=== PATIENT | female | born 1940 | race Caucasian/White ===

== ENCOUNTER 2017-09-25 16:12 | Inpatient (IN) | payer OTHER ==
[~2017-09-25] VITALS: Ht 162.6 cm; Wt 115.3 kg
[~2017-09-25 16:12] MED LIST: ADULT LOW DOSE81 M1 PO; ALLOPURINOL100 MG PO; ASPIR 8181 MG PO; CALCITRIOL0.25 MCG PO; CELEBREX200 MG PO; CIPRO500 MG PO; COMBIVENT RESPIM4 GM IH; COMBIVENT200 INHALA IH; COUMADIN,JANTOVE1 MG PO; COUMADIN1 MG PO; DILTIA XT120 MG PO; ELAVIL25 MG PO; GLUCOPHAGE1000 M1 PO; JANUVIA100 MG PO; JANUVIA25 M1 PO; LANOXIN,DIGI0.125 MG PO; LASIX20 MG PO; LASIX40 MG PO; LEVOTHYROXINE100 MCG PO; LIPITOR20 MG PO; LIPITOR40 MG PO; Lasix PO; NEURONTIN400 M1 PO; NIASPAN,SLO-NI500 MG PO; NIASPAN500 MG PO; SYMBICORT60 INHALA1 IH; VITAMIN D2000 UNIT PO; ZESTRIL5 MG PO
[2017-09-25 18:00] LABS: BASOPHIL (%) 0.2 % (0-1); BASOPHIL COUNT 0.1 K/uL (0-0.1); EOSINOPHIL (%) 0 % (0-5); HEMATOCRIT 43.4 % (36.0-46.0); HEMOGLOBIN 14.8 G/DL (11.9-15.5); IMMATURE GRANULOCYTE (%) 2.1 % (0.0-0.7); LYMPHOCYTE (%) 2.5 % (15-42); LYMPHOCYTE COUNT 0.8 K/uL (1.0-2.8); MCH 31.9 PG (29.0-34.0); MCHC 34.1 G/DL (30.0-36.0); MCV 93.5 FL (83-99); MONOCYTE (%) 5.6 % (3-12); MONOCYTE COUNT 1.7 K/uL (0-0.8); NEUTROPHIL (%) 89.6 % (45-76); NEUTROPHIL COUNT 26.8 K/uL (1.8-6.4); PLATELET COUNT 215 K/uL (156-360); RBC DIS.WIDTH-CV 13.5 % (11.8-14.6); RBC DIS.WIDTH-SD 46.3 % (39-53); RED BLOOD COUNT 4.64 M/uL (3.80-5.20); WHITE BLOOD COUNT 29.9 K/uL (4.1-10.2)
[2017-09-25 18:06] LABS: INTER. NORMALIZED RATIO 3.2
[2017-09-25 18:07] LABS: ALBUMIN 3.6 g/dL (3.2-4.8)
[2017-09-25 18:08] LABS: CHLORIDE 100 mEq/L (99-109); POTASSIUM 3.4 mEq/L (3.7-5.4); PTT 42.8 SEC (25-37); SODIUM 140 mEq/L (136-147)
[2017-09-25 18:10] LABS: GLUCOSE 161 mg/dL (70-99); TOTAL PROTEIN 6.9 g/dL (6.4-8.3)
[2017-09-25 18:12] LABS: TOTAL BILIRUBIN 1.8 mg/dL (0.0-1.0)
[2017-09-25 18:13] LABS: ALKALINE PHOSPHATASE 102 IU/L (3-129)
[2017-09-25 18:14] LABS: CREATININE 1.8 mg/dL (0.6-1.3); GFR ESTIMATE (CALCULATED) 29 mL/min/
[2017-09-25 18:15] LABS: AST (GOT) 89 IU/L (2-34); UREA NITROGEN (BUN) 28 mg/dL (9-23)
[2017-09-25 18:17] LABS: ALT (GPT) 55 IU/L (3-49)
[2017-09-25 18:18] LABS: LIPASE 1 U/L (1.0-51.0)
[2017-09-25 20:15] LABS: APPEARANCE TURBID ((CLEAR)); BILIRUBIN NEGATIVE; BLOOD SMALL; COLOR AMBER ((YELLOW)); GLUCOSE (STRIP) NEGATIVE; KETONES 5; LEUKOCYTES MODERATE; NITRITE NEGATIVE; PROTEIN (STRIP) 100; SPECIFIC GRAVITY 1.019 (1.000-1.030)
[2017-09-25 20:27] LABS: BACTERIA 4+ /HPF; EPITHELIAL CELLS 3+ /HPF; MUCUS NONE SEEN /LPF; WHITE BLOOD CELLS TNTC /HPF (0-5)
[2017-09-25] MEDS ORDERED: DILTIAZEM 24HR120 MG PO (21:52)
[2017-09-25] MEDS ORDERED: COLACE100 MG PO (21:55)
[2017-09-25] MEDS ORDERED: MYRBETRIQ25 MG PO (21:55)
[2017-09-25 23:36] LABS: CREATINE KINASE 931 IU/L (1-294)
[2017-09-26] VITALS (33 sets, daily range): BP systolic 86–141; BP diastolic 51–84
[2017-09-26 06:04] LABS: PTT 35.9 SEC (25-37)
[2017-09-26 06:12] LABS: INTER. NORMALIZED RATIO 1.8
[2017-09-26 06:18] LABS: HEMATOCRIT 33.8 % (36.0-46.0); MCH 30.7 PG (29.0-34.0); MCHC 32.8 G/DL (30.0-36.0); MCV 93.6 FL (83-99); PLATELET COUNT 173 K/uL (156-360); RBC DIS.WIDTH-CV 13.7 % (11.8-14.6); RBC DIS.WIDTH-SD 47.4 % (39-53); WHITE BLOOD COUNT 19.2 K/uL (4.1-10.2)
[2017-09-26 06:23] LABS: ALBUMIN 3.2 G/DL (3.2-4.8); ALKALINE PHOSPHATASE 67 IU/L (3-129); ALT (GPT) 38 IU/L (3-49); AST (GOT) 57 IU/L (2-34); CHLORIDE 101 MEQ/L (99-109); CREATININE 1.9 MG/DL (0.6-1.3); GFR ESTIMATE (CALCULATED) 27 mL/min/; GLUCOSE 157 mg/dL (70-99); POTASSIUM 3.4 MEQ/L (3.7-5.4); SODIUM 140 MEQ/L (136-147); TOTAL BILIRUBIN 1.4 MG/DL (0.0-1.0); TOTAL PROTEIN 5.7 G/DL (6.4-8.3); UREA NITROGEN (BUN) 31 mg/dL (9-23)
[2017-09-26 06:27] LABS: HEMOGLOBIN 11.1 G/DL (11.9-15.5); RED BLOOD COUNT 3.61 M/uL (3.80-5.20)
[2017-09-26 10:34] LABS: HEMOGLOBIN A1c (GLYCOHEMOGLOB) 5.9 % (Below 5.7)
[2017-09-26 17:30] LABS: HEMATOCRIT 32.4 % (36.0-46.0); HEMOGLOBIN 10.7 G/DL (11.9-15.5); MCH 31.1 PG (29.0-34.0); MCV 94.2 FL (83-99); PLATELET COUNT 152 K/uL (156-360); RBC DIS.WIDTH-CV 13.9 % (11.8-14.6); RBC DIS.WIDTH-SD 47.8 % (39-53); RED BLOOD COUNT 3.44 M/uL (3.80-5.20); WHITE BLOOD COUNT 15.8 K/uL (4.1-10.2)
[2017-09-26 17:41] LABS: INTER. NORMALIZED RATIO 1.5
[2017-09-26 17:44] LABS: PTT 31.1 SEC (25-37)
[2017-09-26 18:02] LABS: ALBUMIN 3.6 G/DL (3.2-4.8); ALT (GPT) 42 IU/L (3-49); AST (GOT) 79 IU/L (2-34); CHLORIDE 101 MEQ/L (99-109); CREATININE 1.9 MG/DL (0.6-1.3); GFR ESTIMATE (CALCULATED) 27 mL/min/; GLUCOSE 166 mg/dL (70-99); MAGNESIUM 1.6 mg/dl (1.3-2.7); PHOSPHORUS 2.6 mg/dL (2.5-4.9); POTASSIUM 3.4 MEQ/L (3.7-5.4); SODIUM 139 MEQ/L (136-147); UREA NITROGEN (BUN) 32 mg/dL (9-23)
[2017-09-26 18:04] LABS: TROP-I INTERPRETATION NEGATIVE; TROPONIN-I 0.02 ng/mL (0.0-0.30)
[2017-09-26 18:23] LABS: ALKALINE PHOSPHATASE 101 IU/L (3-129); TOTAL BILIRUBIN 1.9 MG/DL (0.0-1.0); TOTAL PROTEIN 6.7 G/DL (6.4-8.3)
[2017-09-27] VITALS (22 sets, daily range): BP systolic 64–142; BP diastolic 44–75
[2017-09-27 00:30] LABS: APPEARANCE SL.HAZY ((CLEAR)); BILIRUBIN SMALL; BLOOD SMALL; COLOR AMBER ((YELLOW)); GLUCOSE (STRIP) NEGATIVE; KETONES NEGATIVE; LEUKOCYTES SMALL; NITRITE NEGATIVE; PROTEIN (STRIP) 100; SPECIFIC GRAVITY 1.023 (1.000-1.030)
[2017-09-27 00:50] LABS: BACTERIA NONE SEEN /HPF; EPITHELIAL CELLS RARE /HPF; MUCUS TRACE /LPF; RED BLOOD CELLS 0-5 /HPF (0-5)
[2017-09-27 04:34] LABS: BASOPHIL (%) 0.2 % (0-1); EOSINOPHIL (%) 0 % (0-5); HEMATOCRIT 32.4 % (36.0-46.0); HEMOGLOBIN 10.9 G/DL (11.9-15.5); IMMATURE GRANULOCYTE (%) 1.3 % (0.0-0.7); LYMPHOCYTE (%) 3.8 % (15-42); LYMPHOCYTE COUNT 0.6 K/uL (1.0-2.8); MCH 32.1 PG (29.0-34.0); MCHC 33.6 G/DL (30.0-36.0); MCV 95.3 FL (83-99); MONOCYTE (%) 6.9 % (3-12); NEUTROPHIL (%) 87.8 % (45-76); NEUTROPHIL COUNT 13.3 K/uL (1.8-6.4); PLATELET COUNT 124 K/uL (156-360); RBC DIS.WIDTH-CV 13.9 % (11.8-14.6); RBC DIS.WIDTH-SD 48.6 % (39-53); WHITE BLOOD COUNT 15.2 K/uL (4.1-10.2)
[2017-09-27 04:39] LABS: INTER. NORMALIZED RATIO 1.5
[2017-09-27 04:41] LABS: PTT 33.9 SEC (25-37)
[2017-09-27 09:21] LABS: ANTI-DOUBLE STRANDED DNA 28 U/mL (0-99)
[2017-09-27 17:49] LABS: BASOPHIL (%) 0.1 % (0-1); EOSINOPHIL (%) 0.4 % (0-5); HEMOGLOBIN 10.1 G/DL (11.9-15.5); IMMATURE GRANULOCYTE (%) 0.6 % (0.0-0.7); LYMPHOCYTE (%) 3.6 % (15-42); LYMPHOCYTE COUNT 0.4 K/uL (1.0-2.8); MCH 30.1 PG (29.0-34.0); MCHC 31.6 G/DL (30.0-36.0); MCV 95.5 FL (83-99); MONOCYTE (%) 5.8 % (3-12); MONOCYTE COUNT 0.6 K/uL (0-0.8); NEUTROPHIL (%) 89.5 % (45-76); PLATELET COUNT 120 K/uL (156-360); RBC DIS.WIDTH-CV 14.2 % (11.8-14.6); RBC DIS.WIDTH-SD 50.4 % (39-53); RED BLOOD COUNT 3.35 M/uL (3.80-5.20)
[2017-09-27 18:45] LABS: ALBUMIN 3.2 G/DL (3.2-4.8); ALKALINE PHOSPHATASE 123 IU/L (3-129); ALT (GPT) 45 IU/L (3-49); AST (GOT) 92 IU/L (2-34); CHLORIDE 106 MEQ/L (99-109); CREATINE KINASE 825 IU/L (1-294); CREATININE 1.9 MG/DL (0.6-1.3); GFR ESTIMATE (CALCULATED) 27 mL/min/; GLUCOSE 140 mg/dL (70-99); MAGNESIUM 1.7 mg/dl (1.3-2.7); PHOSPHORUS 2.9 mg/dL (2.5-4.9); POTASSIUM 3.5 MEQ/L (3.7-5.4); SODIUM 140 MEQ/L (136-147); TOTAL BILIRUBIN 1.7 MG/DL (0.0-1.0); TOTAL CK 825 IU/L (1-294); TOTAL PROTEIN 5.4 G/DL (6.4-8.3); UREA NITROGEN (BUN) 36 mg/dL (9-23)
[2017-09-27 19:05] LABS: CK-MB 2.7 ng/mL (0.0-4.9); CKMB RELATIVE INDEX 0.3 (0.0-3.9)
[2017-09-27 19:21] LABS: HIGH-SENS C-REACTIVE PROTEIN > 8.00 MG/DL (0.02-0.20)
[2017-09-28] VITALS (17 sets, daily range): BP systolic 92–129; BP diastolic 58–81
[2017-09-28 06:58] LABS: HEMATOCRIT 30.4 % (36.0-46.0); HEMOGLOBIN 10.2 G/DL (11.9-15.5); MCH 31.5 PG (29.0-34.0); MCHC 33.6 G/DL (30.0-36.0); MCV 93.8 FL (83-99); PLATELET COUNT 120 K/uL (156-360); RBC DIS.WIDTH-CV 14.1 % (11.8-14.6); RBC DIS.WIDTH-SD 48.8 % (39-53); RED BLOOD COUNT 3.24 M/uL (3.80-5.20); WHITE BLOOD COUNT 9.3 K/uL (4.1-10.2)
[2017-09-28 07:09] LABS: INTER. NORMALIZED RATIO 1.5
[2017-09-28 07:10] LABS: PTT 32.8 SEC (25-37)
[2017-09-28 07:23] LABS: ALBUMIN 2.9 G/DL (3.2-4.8); ALT (GPT) 61 IU/L (3-49); CHLORIDE 106 MEQ/L (99-109); GFR ESTIMATE (CALCULATED) 26 mL/min/; GLUCOSE 143 mg/dL (70-99); MAGNESIUM 1.7 mg/dl (1.3-2.7); POTASSIUM 3.7 MEQ/L (3.7-5.4); SODIUM 139 MEQ/L (136-147); TOTAL BILIRUBIN 1.8 MG/DL (0.0-1.0); TOTAL PROTEIN 5.2 G/DL (6.4-8.3); UREA NITROGEN (BUN) 36 mg/dL (9-23)
[2017-09-28 07:28] LABS: ALKALINE PHOSPHATASE 198 IU/L (3-129); AST (GOT) 144 IU/L (2-34)
[2017-09-29] VITALS (22 sets, daily range): BP systolic 109–137; BP diastolic 58–94
[2017-09-29 06:30] LABS: BASOPHIL (%) 0.4 % (0-1); EOSINOPHIL (%) 2.5 % (0-5); EOSINOPHIL COUNT 0.2 K/uL (0-0.3); HEMATOCRIT 30.2 % (36.0-46.0); IMMATURE GRANULOCYTE (%) 1.4 % (0.0-0.7); LYMPHOCYTE (%) 8.5 % (15-42); LYMPHOCYTE COUNT 0.7 K/uL (1.0-2.8); MCH 30.5 PG (29.0-34.0); MCHC 33.1 G/DL (30.0-36.0); MCV 92.1 FL (83-99); MONOCYTE (%) 7.6 % (3-12); MONOCYTE COUNT 0.6 K/uL (0-0.8); NEUTROPHIL (%) 79.6 % (45-76); NEUTROPHIL COUNT 6.1 K/uL (1.8-6.4); PLATELET COUNT 124 K/uL (156-360); RBC DIS.WIDTH-SD 47.4 % (39-53); RED BLOOD COUNT 3.28 M/uL (3.80-5.20); WHITE BLOOD COUNT 7.7 K/uL (4.1-10.2)
[2017-09-29 06:36] LABS: BASE EXCESS -5.4 mEq/L (-3 to +3); BICARBONATE 19.1 mEq/L (22-26); CARBOXY HGB 1.6 % (0-5); COMMENTS - BLOOD GASES A+C+; DEVICE NCH; METHEMOGLOBIN 1.7 % (0-1.5); O2 FLOW 12 L/MIN; PCO2 33 mm Hg (35-45); PO2 60 mm Hg (80-100); SITE RR; pH 7.37 (7.35-7.45)
[2017-09-29 06:47] LABS: CHLORIDE 106 MEQ/L (99-109); CREATININE 1.9 MG/DL (0.6-1.3); GFR ESTIMATE (CALCULATED) 27 mL/min/; GLUCOSE 150 mg/dL (70-99); POTASSIUM 3.5 MEQ/L (3.7-5.4); SODIUM 140 MEQ/L (136-147); UREA NITROGEN (BUN) 35 mg/dL (9-23)
[2017-09-30 00:30] VITALS: BP 122/58
[2017-09-30 02:48] VITALS: BP 107/53
[2017-09-30 08:08] VITALS: BP 113/56
[2017-09-30 11:01] VITALS: BP 120/58
[2017-09-30 11:11] LABS: CHLORIDE 106 MEQ/L (99-109); CREATININE 1.8 MG/DL (0.6-1.3); GFR ESTIMATE (CALCULATED) 29 mL/min/; GLUCOSE 148 mg/dL (70-99); POTASSIUM 3.3 MEQ/L (3.7-5.4); SODIUM 137 MEQ/L (136-147); UREA NITROGEN (BUN) 37 mg/dL (9-23)
[2017-09-30 11:54] LABS: MAGNESIUM 1.6 mg/dl (1.3-2.7)
[2017-09-30 12:48] LABS: HEMATOCRIT 31.7 % (36.0-46.0); HEMOGLOBIN 10.6 G/DL (11.9-15.5); MCH 30.7 PG (29.0-34.0); MCHC 33.4 G/DL (30.0-36.0); MCV 91.9 FL (83-99); PLATELET COUNT 150 K/uL (156-360); RBC DIS.WIDTH-CV 14.2 % (11.8-14.6); RBC DIS.WIDTH-SD 47.9 % (39-53); RED BLOOD COUNT 3.45 M/uL (3.80-5.20); WHITE BLOOD COUNT 9.5 K/uL (4.1-10.2)
[2017-09-30 12:53] LABS: INTER. NORMALIZED RATIO 2.2
[2017-09-30 15:28] VITALS: BP 146/66
[2017-09-30 20:52] VITALS: BP 110/56
[2017-10-01 00:34] VITALS: BP 120/58
[2017-10-01 04:28] VITALS: BP 122/59
[2017-10-01 05:33] LABS: HEMATOCRIT 30.4 % (36.0-46.0); HEMOGLOBIN 10.2 G/DL (11.9-15.5); MCH 30.4 PG (29.0-34.0); MCHC 33.6 G/DL (30.0-36.0); MCV 90.5 FL (83-99); PLATELET COUNT 176 K/uL (156-360); RBC DIS.WIDTH-SD 46.5 % (39-53); RED BLOOD COUNT 3.36 M/uL (3.80-5.20); WHITE BLOOD COUNT 14.1 K/uL (4.1-10.2)
[2017-10-01 05:36] LABS: INTER. NORMALIZED RATIO 2.3
[2017-10-01 07:31] LABS: CHLORIDE 106 MEQ/L (99-109); CREATININE 1.8 MG/DL (0.6-1.3); GFR ESTIMATE (CALCULATED) 29 mL/min/; POTASSIUM 3.9 MEQ/L (3.7-5.4); SODIUM 138 MEQ/L (136-147); UREA NITROGEN (BUN) 40 mg/dL (9-23)
[2017-10-01 07:32] LABS: GLUCOSE 223 mg/dL (70-99); MAGNESIUM 2.1 mg/dl (1.3-2.7)
[2017-10-01 07:59] VITALS: BP 128/63
[2017-10-01 12:00] VITALS: BP 123/60
[2017-10-01 12:30] LABS: ALBUMIN 2.8 G/DL (3.2-4.8); DIRECT BILIRUBIN 0.6 mg/dL (0.0-0.3); TOTAL PROTEIN 5.4 G/DL (6.4-8.3)
[2017-10-01 12:31] LABS: ALKALINE PHOSPHATASE 300 IU/L (3-129); ALT (GPT) 138 IU/L (3-49); AST (GOT) 217 IU/L (2-34); TOTAL BILIRUBIN 1.3 MG/DL (0.0-1.0)
[2017-10-01 16:00] VITALS: BP 129/61
[2017-10-01 19:22] VITALS: BP 111/59
[2017-10-02 01:01] VITALS: BP 118/57
[2017-10-02 04:35] VITALS: BP 134/65
[2017-10-02 04:53] LABS: INTER. NORMALIZED RATIO 2.3
[2017-10-02 09:00] VITALS: BP 109/55
[2017-10-02 09:29] LABS: CHLORIDE 103 MEQ/L (99-109); CREATININE 1.5 MG/DL (0.6-1.3); GFR ESTIMATE (CALCULATED) 36 mL/min/; GLUCOSE 216 mg/dL (70-99); POTASSIUM 3.7 MEQ/L (3.7-5.4); SODIUM 135 MEQ/L (136-147); UREA NITROGEN (BUN) 42 mg/dL (9-23)
[2017-10-02 12:00] VITALS: BP 137/62
[2017-10-02 12:47] LABS: ALKALINE PHOSPHATASE 232 IU/L (3-129); ALT (GPT) 101 IU/L (3-49); DIRECT BILIRUBIN 0.4 mg/dL (0.0-0.3)
[2017-10-02 13:01] LABS: AST (GOT) 83 IU/L (2-34)
[2017-10-02 17:00] VITALS: BP 129/61
[2017-10-02 21:34] VITALS: BP 117/57
[2017-10-03 01:00] VITALS: BP 142/65
[2017-10-03 04:28] VITALS: BP 127/58
[2017-10-03 06:07] LABS: HEMATOCRIT 30.4 % (36.0-46.0); MCH 30.2 PG (29.0-34.0); MCHC 32.9 G/DL (30.0-36.0); MCV 91.8 FL (83-99); NRBC (%) 0.1 /100 WBC (0-0); PLATELET COUNT 226 K/uL (156-360); RBC DIS.WIDTH-CV 14.6 % (11.8-14.6); RBC DIS.WIDTH-SD 48.5 % (39-53); RED BLOOD COUNT 3.31 M/uL (3.80-5.20); WHITE BLOOD COUNT 16.9 K/uL (4.1-10.2)
[2017-10-03 06:32] LABS: ABS NEUTROPHIL COUNT 15.6; ANISOCYTOSIS 2+; EOSINOPHIL ABS CT 0; LYMPHOCYTES 3.5 % (15.0-45.0); MACROCYTES 2+; MONOCYTES 4.3 % (0-9.0); OVALOCYTES 1+; PLAT.SUFFICIENCY ADEQUATE; POIKILOCYTOSIS 1+; SEG.NEUTROPHILS 92.2 % (46.0-76.0); TEAR DROP CELLS 1+
[2017-10-03 07:14] VITALS: BP 143/71
[2017-10-03] MEDS ORDERED: CARDIZEM CD,CA180 MG PO (10:24)
[2017-10-03] MEDS ORDERED: FUROSEMIDE40 MG PO (10:25)
[2017-10-03] MEDS ORDERED: FLORASTOR250 MG PO (10:26)
[2017-10-03] MEDS ORDERED: LEVAQUIN750 MG PO (10:26)
[2017-10-03] MEDS ORDERED: PREDNISONE10 MG PO (10:35)
[2017-10-03 11:16] VITALS: BP 135/74
== END 2017-10-03 14:46 | DRG 871 ==
LOC: EME → EDBD 16:12 → EME 16:12 → 4EAST 22:42 → EDOF 22:42 → 4WEST 22:42 → ENRESERV 22:45 → 4EAST 23:50 → 4WEST 09-26 20:17 → ENRESERV 09-26 20:47 → 4WEST 09-26 21:42 → ENRESERV 09-29 22:00 → 4EAST 09-30 00:28 → ENPENDDIS 10-03 → 4EAST 10-03 14:46
PROVIDERS: Emergency Medicine; Hospitalist; Internal Medicine; Surgery
PROC: 0F9430Z Drainage of Gallbladder with Drainage Device, Percutaneous Approach (ICD-10-PCS; principal; 2017-09-26)
DX: A41.59 Other Gram-negative sepsis (principal); J96.01 Acute respiratory failure with hypoxia; N17.9 Acute kidney failure, unspecified; R65.20 Severe sepsis without septic shock; J18.9 Pneumonia, unspecified organism; K81.0 Acute cholecystitis; E87.6 Hypokalemia; E86.0 Dehydration; I48.2 Chronic atrial fibrillation; E11.40 Type 2 diabetes mellitus with diabetic neuropathy, unspecified; E03.9 Hypothyroidism, unspecified; Z91.81 History of falling; E66.01 Morbid (severe) obesity due to excess calories; Z68.41 Body mass index [BMI] 40.0-44.9, adult; N39.0 Urinary tract infection, site not specified; I12.9 Hypertensive chronic kidney disease with stage 1 through stage 4 chronic kidney disease, or unspecified chronic kidney disease; Z79.01 Long term (current) use of anticoagulants; N18.3 Chronic kidney disease, stage 3 (moderate); E78.5 Hyperlipidemia, unspecified; G89.29 Other chronic pain; J98.11 Atelectasis; D68.32 Hemorrhagic disorder due to extrinsic circulating anticoagulants; T45.515A Adverse effect of anticoagulants, initial encounter; M10.9 Gout, unspecified; E11.22 Type 2 diabetes mellitus with diabetic chronic kidney disease; E66.9 Obesity, unspecified; K56.7 Ileus, unspecified; J44.0 Chronic obstructive pulmonary disease with (acute) lower respiratory infection; J44.1 Chronic obstructive pulmonary disease with (acute) exacerbation; D25.9 Leiomyoma of uterus, unspecified
CPT/HCPCS: 36600; 49405; 70450; 71045; 74018; 74022; 74176; 78582; 80048; 80053; 80076; 81003; 82330; 82436; 82550; 82553; 82570; 82803; 82948; 83036; 83605; 83690; 83735; 83880; 84100; 84133; 84145 90; 84300; 84484; 85025; 85025 91; 85027; 85610; 85730; 86141; 86235; 86850; 86900; 86901; 87040; 87070; 87075; 87077; 87086; 87147; 87186; 87205; 87449; 87641; 93005; 93306; 94640; 94640 76; 94760; 94799; 97530 GO; 97530 GP; 99202; 99281; 99285; A9540; A9567; C1729; C1769; J0131; J0456; J0610; J0692; J0696; J1170; J1815; J1940; J2543; J2920; J3010; J3370; J3430; J3480; J7030; J7050; J7512; P9017; P9045; P9047

== ENCOUNTER 2017-10-07 16:41 | Inpatient (IN) | payer OTHER ==
[~2017-10-07] VITALS: Ht 162.6 cm; Wt 111.7 kg
[~2017-10-07 16:41] MED LIST changes: +CARDIZEM CD,CA180 MG PO; +COLACE100 MG PO; +DILTIAZEM 24HR120 MG PO; +FLORASTOR250 MG PO; +FUROSEMIDE40 MG PO; +LEVAQUIN750 MG PO; +MYRBETRIQ25 MG PO; +PREDNISONE10 MG PO
[2017-10-07 18:21] LABS: HEMATOCRIT 36.5 % (36.0-46.0); HEMOGLOBIN 12.4 G/DL (11.9-15.5); MCH 31.2 PG (29.0-34.0); MCV 91.9 FL (83-99); PLATELET COUNT 243 K/uL (156-360); RBC DIS.WIDTH-CV 15.4 % (11.8-14.6); RBC DIS.WIDTH-SD 49.6 % (39-53); RED BLOOD COUNT 3.97 M/uL (3.80-5.20); WHITE BLOOD COUNT 18.2 K/uL (4.1-10.2)
[2017-10-07 18:28] LABS: ALBUMIN 3.4 g/dL (3.2-4.8); CHLORIDE 94 mEq/L (99-109); POTASSIUM 4.9 mEq/L (3.7-5.4); SODIUM 139 mEq/L (136-147)
[2017-10-07 18:30] LABS: GLUCOSE 282 mg/dL (70-99)
[2017-10-07 18:31] LABS: TOTAL PROTEIN 5.9 g/dL (6.4-8.3)
[2017-10-07 18:32] LABS: TOTAL BILIRUBIN 0.7 mg/dL (0.0-1.0)
[2017-10-07 18:34] LABS: ALKALINE PHOSPHATASE 180 IU/L (3-129); CREATININE 1.5 mg/dL (0.6-1.3); GFR ESTIMATE (CALCULATED) 36 mL/min/
[2017-10-07 18:35] LABS: UREA NITROGEN (BUN) 48 mg/dL (9-23)
[2017-10-07 18:36] LABS: AST (GOT) 35 IU/L (2-34)
[2017-10-07 18:37] LABS: ALT (GPT) 56 IU/L (3-49)
[2017-10-07 18:38] LABS: LIPASE 107 U/L (1.0-51.0)
[2017-10-07] MEDS ORDERED: GABAPENTIN400 MG PO (21:31)
[2017-10-07] MEDS ORDERED: CARDIZEM CD,CA180 MG PO (21:35)
[2017-10-07 21:40] LABS: INTER. NORMALIZED RATIO 1.5
[2017-10-07] MEDS ORDERED: FLAGYL500 MG PO (21:40)
[2017-10-07 21:43] LABS: PTT 39.6 SEC (25-37)
[2017-10-07] MEDS ORDERED: PREDNISONE10 MG PO (21:51)
[2017-10-07] MEDS ORDERED: AMITRIPTYLINE H25 MG PO (21:55)
[2017-10-07] MEDS ORDERED: NIACIN ER500 MG PO (21:56)
[2017-10-07] MEDS ORDERED: MILK OF MAGN PO (22:02)
[2017-10-08 00:31] VITALS: BP 141/67
[2017-10-08 03:30] VITALS: BP 131/70
[2017-10-08 07:25] VITALS: BP 156/72
[2017-10-08 09:06] LABS: HEMATOCRIT 38.2 % (36.0-46.0); HEMOGLOBIN 12.6 G/DL (11.9-15.5); MCH 30.8 PG (29.0-34.0); MCV 93.4 FL (83-99); PLATELET COUNT 227 K/uL (156-360); RBC DIS.WIDTH-CV 15.6 % (11.8-14.6); RBC DIS.WIDTH-SD 52.7 % (39-53); RED BLOOD COUNT 4.09 M/uL (3.80-5.20); WHITE BLOOD COUNT 17.9 K/uL (4.1-10.2)
[2017-10-08 09:33] LABS: ALBUMIN 3.2 G/DL (3.2-4.8); ALKALINE PHOSPHATASE 151 IU/L (3-129); ALT (GPT) 43 IU/L (3-49); AST (GOT) 27 IU/L (2-34); CHLORIDE 96 MEQ/L (99-109); CREATININE 1.2 MG/DL (0.6-1.3); GFR ESTIMATE (CALCULATED) 46 mL/min/; GLUCOSE 158 mg/dL (70-99); POTASSIUM 4.8 MEQ/L (3.7-5.4); SODIUM 139 MEQ/L (136-147); UREA NITROGEN (BUN) 41 mg/dL (9-23)
[2017-10-08 09:35] LABS: TOTAL BILIRUBIN 0.9 MG/DL (0.0-1.0)
[2017-10-08 15:04] VITALS: BP 95/50
[2017-10-08 18:59] LABS: APPEARANCE CLEAR ((CLEAR)); BILIRUBIN NEGATIVE; BLOOD NEGATIVE; COLOR YELLOW ((YELLOW)); GLUCOSE (STRIP) NEGATIVE; KETONES NEGATIVE; LEUKOCYTES TRACE; NITRITE NEGATIVE; PROTEIN (STRIP) NEGATIVE; SPECIFIC GRAVITY 1.011 (1.000-1.030); UROBILINOGEN 0.2 MG/DL (0.2-1.0)
[2017-10-08 19:00] VITALS: BP 105/53
[2017-10-08 19:31] LABS: BACTERIA 1+ /HPF; EPITHELIAL CELLS RARE /HPF; HYALINE CASTS 0-5 /LPF; MUCUS TRACE /LPF; RED BLOOD CELLS 0-5 /HPF (0-5)
[2017-10-08 19:41] LABS: BASOPHIL (%) 0.1 % (0-1); EOSINOPHIL (%) 0.5 % (0-5); EOSINOPHIL COUNT 0.1 K/uL (0-0.3); HEMATOCRIT 36.5 % (36.0-46.0); HEMOGLOBIN 12.4 G/DL (11.9-15.5); IMMATURE GRANULOCYTE (%) 2.9 % (0.0-0.7); LYMPHOCYTE (%) 8.5 % (15-42); LYMPHOCYTE COUNT 1.5 K/uL (1.0-2.8); MCH 31.4 PG (29.0-34.0); MCV 92.4 FL (83-99); MONOCYTE (%) 7.1 % (3-12); MONOCYTE COUNT 1.3 K/uL (0-0.8); NEUTROPHIL (%) 80.9 % (45-76); NEUTROPHIL COUNT 14.4 K/uL (1.8-6.4); PLATELET COUNT 229 K/uL (156-360); RBC DIS.WIDTH-CV 15.7 % (11.8-14.6); RBC DIS.WIDTH-SD 51.1 % (39-53); RED BLOOD COUNT 3.95 M/uL (3.80-5.20); WHITE BLOOD COUNT 17.7 K/uL (4.1-10.2)
[2017-10-08 19:45] LABS: BASE EXCESS 11.5 mEq/L (-3 to +3); BICARBONATE 35.9 mEq/L (22-26); CARBOXY HGB 2.2 % (0-5); COMMENTS - BLOOD GASES A+C+; METHEMOGLOBIN 1.8 % (0-1.5); PCO2 45 mm Hg (35-45); PO2 49 mm Hg (80-100); SITE LR; pH 7.51 (7.35-7.45)
[2017-10-08 19:46] LABS: DEVICE HIGH FLOW NC; O2 FLOW 15 L/MIN
[2017-10-08 19:53] LABS: INTER. NORMALIZED RATIO 1.4
[2017-10-08 19:58] LABS: CHLORIDE 93 MEQ/L (99-109); POTASSIUM 4.3 MEQ/L (3.7-5.4); SODIUM 134 MEQ/L (136-147)
[2017-10-08 20:09] LABS: TROP-I INTERPRETATION NEGATIVE; TROPONIN-I 0.02 ng/mL (0.0-0.30)
[2017-10-08 20:29] LABS: CREATININE 1.4 MG/DL (0.6-1.3); GFR ESTIMATE (CALCULATED) 39 mL/min/; GLUCOSE 181 mg/dL (70-99); UREA NITROGEN (BUN) 44 mg/dL (9-23)
[2017-10-08 21:45] VITALS: BP 131/64
[2017-10-09 00:30] VITALS: BP 129/78
[2017-10-09 05:09] LABS: HEMATOCRIT 35.9 % (36.0-46.0); HEMOGLOBIN 12.3 G/DL (11.9-15.5); MCH 31.5 PG (29.0-34.0); MCHC 34.3 G/DL (30.0-36.0); MCV 92.1 FL (83-99); PLATELET COUNT 207 K/uL (156-360); RBC DIS.WIDTH-CV 15.7 % (11.8-14.6); RBC DIS.WIDTH-SD 51.5 % (39-53); WHITE BLOOD COUNT 15.3 K/uL (4.1-10.2)
[2017-10-09 05:11] LABS: CHLORIDE 94 mEq/L (99-109); SODIUM 138 mEq/L (136-147)
[2017-10-09 05:13] LABS: GLUCOSE 269 mg/dL (70-99)
[2017-10-09 05:17] LABS: CREATININE 1.5 mg/dL (0.6-1.3); GFR ESTIMATE (CALCULATED) 36 mL/min/; UREA NITROGEN (BUN) 42 mg/dL (9-23)
[2017-10-09 05:30] VITALS: BP 116/56
[2017-10-09 07:39] VITALS: BP 128/65
[2017-10-09 12:14] VITALS: BP 121/59
[2017-10-09 14:56] LABS: TYPE OF FLUID PLEURAL
[2017-10-09 15:04] VITALS: BP 127/58
[2017-10-09 15:21] LABS: APPEARANCE HAZY-YELLOW; BODY FLUID RBC'S 11000 /MM^3 (0-100); BODY FLUID WBC'S 1627 /MM^3 (0-500)
[2017-10-09 16:33] LABS: BODY FLUID GLUCOSE 330 MG/DL; BODY FLUID LDH 118 IU/L; BODY FLUID PROTEIN < 3.0 G/DL
[2017-10-09 17:52] LABS: BODY FLUID EOSINOPHILS 0 % (0-25); MONONUCLEAR WBC'S 74 %; POLYNUCLEAR WBC'S 26 % (0-25)
[2017-10-09 21:49] VITALS: BP 101/53
[2017-10-10] VITALS (7 sets, daily range): BP systolic 108–141; BP diastolic 56–66
[2017-10-10 06:32] LABS: BASOPHIL (%) 0.1 % (0-1); EOSINOPHIL (%) 0 % (0-5); HEMATOCRIT 35.1 % (36.0-46.0); HEMOGLOBIN 11.7 G/DL (11.9-15.5); LYMPHOCYTE (%) 3.7 % (15-42); LYMPHOCYTE COUNT 0.5 K/uL (1.0-2.8); MCH 30.9 PG (29.0-34.0); MCHC 33.3 G/DL (30.0-36.0); MCV 92.6 FL (83-99); MONOCYTE (%) 3.5 % (3-12); MONOCYTE COUNT 0.5 K/uL (0-0.8); NEUTROPHIL (%) 91.7 % (45-76); NEUTROPHIL COUNT 12.9 K/uL (1.8-6.4); PLATELET COUNT 220 K/uL (156-360); RBC DIS.WIDTH-CV 15.9 % (11.8-14.6); RBC DIS.WIDTH-SD 52.2 % (39-53); RED BLOOD COUNT 3.79 M/uL (3.80-5.20); WHITE BLOOD COUNT 14.1 K/uL (4.1-10.2)
[2017-10-10 07:28] LABS: CHLORIDE 93 MEQ/L (99-109); CREATININE 1.4 MG/DL (0.6-1.3); GFR ESTIMATE (CALCULATED) 39 mL/min/; GLUCOSE 361 mg/dL (70-99); POTASSIUM 4.2 MEQ/L (3.7-5.4); SODIUM 137 MEQ/L (136-147); UREA NITROGEN (BUN) 43 mg/dL (9-23)
[2017-10-11 04:00] VITALS: BP 107/53
[2017-10-11 05:50] LABS: HEMATOCRIT 32.4 % (36.0-46.0); HEMOGLOBIN 10.8 G/DL (11.9-15.5); MCH 30.7 PG (29.0-34.0); MCHC 33.3 G/DL (30.0-36.0); PLATELET COUNT 199 K/uL (156-360); RBC DIS.WIDTH-CV 16.2 % (11.8-14.6); RED BLOOD COUNT 3.52 M/uL (3.80-5.20)
[2017-10-11 06:21] LABS: CHLORIDE 93 MEQ/L (99-109); CREATININE 1.4 MG/DL (0.6-1.3); GFR ESTIMATE (CALCULATED) 39 mL/min/; GLUCOSE 310 mg/dL (70-99); POTASSIUM 4.6 MEQ/L (3.7-5.4); SODIUM 137 MEQ/L (136-147); UREA NITROGEN (BUN) 47 mg/dL (9-23)
[2017-10-11 08:27] VITALS: BP 108/51
[2017-10-11 11:44] VITALS: BP 112/55
[2017-10-11 16:10] VITALS: BP 135/64
[2017-10-11 19:38] VITALS: BP 136/69
[2017-10-11 23:55] VITALS: BP 125/60
[2017-10-12 04:00] VITALS: BP 128/75
[2017-10-12 06:02] LABS: BASOPHIL (%) 0.1 % (0-1); EOSINOPHIL (%) 0 % (0-5); HEMATOCRIT 35.2 % (36.0-46.0); HEMOGLOBIN 12.1 G/DL (11.9-15.5); IMMATURE GRANULOCYTE (%) 1.3 % (0.0-0.7); LYMPHOCYTE (%) 4.7 % (15-42); LYMPHOCYTE COUNT 0.7 K/uL (1.0-2.8); MCH 31.7 PG (29.0-34.0); MCHC 34.4 G/DL (30.0-36.0); MCV 92.1 FL (83-99); MONOCYTE (%) 4.3 % (3-12); MONOCYTE COUNT 0.6 K/uL (0-0.8); NEUTROPHIL (%) 89.6 % (45-76); NEUTROPHIL COUNT 12.4 K/uL (1.8-6.4); PLATELET COUNT 187 K/uL (156-360); RBC DIS.WIDTH-SD 53.8 % (39-53); RED BLOOD COUNT 3.82 M/uL (3.80-5.20); WHITE BLOOD COUNT 13.8 K/uL (4.1-10.2)
[2017-10-12 06:29] LABS: CHLORIDE 91 MEQ/L (99-109); CREATININE 1.5 MG/DL (0.6-1.3); GFR ESTIMATE (CALCULATED) 36 mL/min/; GLUCOSE 260 mg/dL (70-99); POTASSIUM 4.8 MEQ/L (3.7-5.4); SODIUM 135 MEQ/L (136-147); UREA NITROGEN (BUN) 45 mg/dL (9-23)
[2017-10-12 09:33] VITALS: BP 123/62
[2017-10-12 12:19] VITALS: BP 118/72
[2017-10-12 20:00] VITALS: BP 121/60
[2017-10-12 23:19] VITALS: BP 130/64
[2017-10-13 03:00] VITALS: BP 125/67
[2017-10-13 05:41] LABS: HEMATOCRIT 34.2 % (36.0-46.0); HEMOGLOBIN 11.5 G/DL (11.9-15.5); MCH 30.7 PG (29.0-34.0); MCHC 33.6 G/DL (30.0-36.0); MCV 91.2 FL (83-99); PLATELET COUNT 204 K/uL (156-360); RBC DIS.WIDTH-CV 15.9 % (11.8-14.6); RBC DIS.WIDTH-SD 52.8 % (39-53); RED BLOOD COUNT 3.75 M/uL (3.80-5.20); WHITE BLOOD COUNT 16.3 K/uL (4.1-10.2)
[2017-10-13 06:08] LABS: CHLORIDE 91 MEQ/L (99-109); CREATININE 1.5 MG/DL (0.6-1.3); GFR ESTIMATE (CALCULATED) 36 mL/min/; GLUCOSE 191 mg/dL (70-99); POTASSIUM 4.9 MEQ/L (3.7-5.4); SODIUM 135 MEQ/L (136-147); UREA NITROGEN (BUN) 52 mg/dL (9-23)
[2017-10-13 11:04] VITALS: BP 134/66
[2017-10-13 11:45] VITALS: BP 145/69
[2017-10-13 15:57] VITALS: BP 111/51
[2017-10-13 19:33] VITALS: BP 123/66
[2017-10-14] VITALS (8 sets, daily range): BP systolic 107–132; BP diastolic 56–62
[2017-10-14 06:50] LABS: HEMATOCRIT 35.9 % (36.0-46.0); HEMOGLOBIN 11.8 G/DL (11.9-15.5); MCH 30.3 PG (29.0-34.0); MCHC 32.9 G/DL (30.0-36.0); MCV 92.3 FL (83-99); PLATELET COUNT 178 K/uL (156-360); RBC DIS.WIDTH-CV 15.7 % (11.8-14.6); RBC DIS.WIDTH-SD 52.6 % (39-53); RED BLOOD COUNT 3.89 M/uL (3.80-5.20); WHITE BLOOD COUNT 14.4 K/uL (4.1-10.2)
[2017-10-14 07:14] LABS: CHLORIDE 91 MEQ/L (99-109); CREATININE 1.4 MG/DL (0.6-1.3); GFR ESTIMATE (CALCULATED) 39 mL/min/; GLUCOSE 220 mg/dL (70-99); POTASSIUM 4.5 MEQ/L (3.7-5.4); SODIUM 134 MEQ/L (136-147); UREA NITROGEN (BUN) 50 mg/dL (9-23)
[2017-10-15 03:52] VITALS: BP 139/76
[2017-10-15 06:27] LABS: BASOPHIL (%) 0.1 % (0-1); EOSINOPHIL (%) 0 % (0-5); HEMATOCRIT 36.1 % (36.0-46.0); HEMOGLOBIN 11.9 G/DL (11.9-15.5); IMMATURE GRANULOCYTE (%) 1.3 % (0.0-0.7); LYMPHOCYTE (%) 4.3 % (15-42); LYMPHOCYTE COUNT 0.6 K/uL (1.0-2.8); MCH 30.4 PG (29.0-34.0); MCV 92.3 FL (83-99); MONOCYTE (%) 5.1 % (3-12); MONOCYTE COUNT 0.8 K/uL (0-0.8); NEUTROPHIL (%) 89.2 % (45-76); NEUTROPHIL COUNT 13.2 K/uL (1.8-6.4); PLATELET COUNT 171 K/uL (156-360); RBC DIS.WIDTH-CV 15.7 % (11.8-14.6); RBC DIS.WIDTH-SD 52.5 % (39-53); RED BLOOD COUNT 3.91 M/uL (3.80-5.20); WHITE BLOOD COUNT 14.9 K/uL (4.1-10.2)
[2017-10-15 06:44] LABS: CHLORIDE 91 MEQ/L (99-109); CREATININE 1.4 MG/DL (0.6-1.3); GFR ESTIMATE (CALCULATED) 39 mL/min/; GLUCOSE 232 mg/dL (70-99); POTASSIUM 4.3 MEQ/L (3.7-5.4); SODIUM 135 MEQ/L (136-147); UREA NITROGEN (BUN) 49 mg/dL (9-23)
[2017-10-15 07:43] VITALS: BP 177/86
[2017-10-15 11:48] VITALS: BP 110/69
[2017-10-15 16:54] VITALS: BP 104/80
[2017-10-15 20:05] VITALS: BP 125/58
[2017-10-15 23:32] VITALS: BP 128/65
[2017-10-16 04:00] VITALS: BP 127/60
[2017-10-16 06:18] LABS: BASOPHIL (%) 0.2 % (0-1); EOSINOPHIL (%) 0.1 % (0-5); HEMATOCRIT 33.9 % (36.0-46.0); HEMOGLOBIN 11.2 G/DL (11.9-15.5); IMMATURE GRANULOCYTE (%) 1.8 % (0.0-0.7); LYMPHOCYTE COUNT 0.9 K/uL (1.0-2.8); MCH 30.9 PG (29.0-34.0); MCV 93.4 FL (83-99); MONOCYTE (%) 7.1 % (3-12); MONOCYTE COUNT 0.9 K/uL (0-0.8); NEUTROPHIL (%) 83.8 % (45-76); NEUTROPHIL COUNT 10.3 K/uL (1.8-6.4); PLATELET COUNT 159 K/uL (156-360); RED BLOOD COUNT 3.63 M/uL (3.80-5.20); WHITE BLOOD COUNT 12.3 K/uL (4.1-10.2)
[2017-10-16 06:53] LABS: ALBUMIN 3.2 G/DL (3.2-4.8); ALKALINE PHOSPHATASE 88 IU/L (3-129); ALT (GPT) 25 IU/L (3-49); AST (GOT) 15 IU/L (2-34); CHLORIDE 93 MEQ/L (99-109); CREATININE 1.4 MG/DL (0.6-1.3); GFR ESTIMATE (CALCULATED) 39 mL/min/; GLUCOSE 193 mg/dL (70-99); POTASSIUM 4.1 MEQ/L (3.7-5.4); SODIUM 136 MEQ/L (136-147); TOTAL BILIRUBIN 0.6 MG/DL (0.0-1.0); TOTAL PROTEIN 5.5 G/DL (6.4-8.3); UREA NITROGEN (BUN) 47 mg/dL (9-23)
[2017-10-16 07:13] LABS: CHLORIDE 93 MEQ/L (99-109); CREATININE 1.4 MG/DL (0.6-1.3); GFR ESTIMATE (CALCULATED) 39 mL/min/; GLUCOSE 193 mg/dL (70-99); POTASSIUM 4.1 MEQ/L (3.7-5.4); SODIUM 136 MEQ/L (136-147); UREA NITROGEN (BUN) 47 mg/dL (9-23)
[2017-10-16 07:25] VITALS: BP 146/66
[2017-10-16 11:00] VITALS: BP 124/66
[2017-10-16 15:00] VITALS: BP 138/63
[2017-10-16 19:30] VITALS: BP 141/62
[2017-10-17] VITALS: BP 146/81
[2017-10-17 06:39] LABS: BASOPHIL (%) 0.2 % (0-1); EOSINOPHIL (%) 0.1 % (0-5); HEMATOCRIT 35.3 % (36.0-46.0); HEMOGLOBIN 11.6 G/DL (11.9-15.5); IMMATURE GRANULOCYTE (%) 2.5 % (0.0-0.7); LYMPHOCYTE (%) 8.1 % (15-42); LYMPHOCYTE COUNT 1.1 K/uL (1.0-2.8); MCH 30.9 PG (29.0-34.0); MCHC 32.9 G/DL (30.0-36.0); MCV 93.9 FL (83-99); MONOCYTE (%) 7.3 % (3-12); NEUTROPHIL (%) 81.8 % (45-76); NEUTROPHIL COUNT 11.4 K/uL (1.8-6.4); NRBC (%) 0.1 /100 WBC (0-0); PLATELET COUNT 160 K/uL (156-360); RBC DIS.WIDTH-SD 55.3 % (39-53); RED BLOOD COUNT 3.76 M/uL (3.80-5.20); WHITE BLOOD COUNT 13.9 K/uL (4.1-10.2)
[2017-10-17 07:06] LABS: CHLORIDE 95 MEQ/L (99-109); CREATININE 1.3 MG/DL (0.6-1.3); GFR ESTIMATE (CALCULATED) 42 mL/min/; POTASSIUM 4.3 MEQ/L (3.7-5.4); SODIUM 134 MEQ/L (136-147); UREA NITROGEN (BUN) 44 mg/dL (9-23)
[2017-10-17 07:08] LABS: GLUCOSE 93 mg/dL (70-99)
[2017-10-17 07:35] VITALS: BP 141/78
[2017-10-17 09:41] LABS: TROP-I INTERPRETATION NEGATIVE; TROPONIN-I 0.04 ng/mL (0.0-0.30)
[2017-10-17] MEDS ORDERED: LOVENOX100 MG/1 M SC (12:12)
[2017-10-17] MEDS ORDERED: COUMADIN1 MG PO (12:12)
[2017-10-17] MEDS ORDERED: FUROSEMIDE20 MG PO (12:13)
[2017-10-17] MEDS ORDERED: SENNA PLUS TAB1 EACH PO (12:13)
== END 2017-10-17 17:00 | DRG 193 ==
LOC: EME 16:41 → EDOF 22:54 → ENRESERV 22:57 → 2EAST 23:56 → 4EAST 10-08 06:44 → 2EAST 10-08 06:44 → 5EAST 10-08 06:44 → ENRESERV 10-08 19:39 → 2EAST 10-08 19:40 → ENRESERV 10-08 19:54 → 4EAST 10-08 21:06 → ENRESERV 10-13 23:36 → 5EAST 10-14 01:28 → ENPENDDIS 10-17 → 5EAST 10-17 17:00
PROVIDERS: Emergency Medicine Emergency Medical Services; Hospitalist; Internal Medicine; Internal Medicine Pulmonary Disease; Radiology Diagnostic Radiology; Surgery
DX: J18.9 Pneumonia, unspecified organism (principal); J96.01 Acute respiratory failure with hypoxia; J98.11 Atelectasis; J44.0 Chronic obstructive pulmonary disease with (acute) lower respiratory infection; J44.1 Chronic obstructive pulmonary disease with (acute) exacerbation; T85.698A Other mechanical complication of other specified internal prosthetic devices, implants and grafts, initial encounter; Y83.8 Other surgical procedures as the cause of abnormal reaction of the patient, or of later complication, without mention of misadventure at the time of the procedure; K80.12 Calculus of gallbladder with acute and chronic cholecystitis without obstruction; E03.9 Hypothyroidism, unspecified; E11.22 Type 2 diabetes mellitus with diabetic chronic kidney disease; E11.65 Type 2 diabetes mellitus with hyperglycemia; E66.01 Morbid (severe) obesity due to excess calories; Z68.42 Body mass index [BMI] 45.0-49.9, adult; I13.0 Hypertensive heart and chronic kidney disease with heart failure and stage 1 through stage 4 chronic kidney disease, or unspecified chronic kidney disease; N18.3 Chronic kidney disease, stage 3 (moderate); I50.33 Acute on chronic diastolic (congestive) heart failure; J90 Pleural effusion, not elsewhere classified; I27.20 Pulmonary hypertension, unspecified; I35.0 Nonrheumatic aortic (valve) stenosis; E87.3 Alkalosis; E11.42 Type 2 diabetes mellitus with diabetic polyneuropathy; D69.1 Qualitative platelet defects; I48.2 Chronic atrial fibrillation; N32.81 Overactive bladder; R32 Unspecified urinary incontinence; D72.829 Elevated white blood cell count, unspecified; T38.0X5A Adverse effect of glucocorticoids and synthetic analogues, initial encounter; G89.29 Other chronic pain; K59.00 Constipation, unspecified; M10.9 Gout, unspecified; M19.90 Unspecified osteoarthritis, unspecified site; E78.5 Hyperlipidemia, unspecified; R19.7 Diarrhea, unspecified; R26.9 Unspecified abnormalities of gait and mobility; F32.9 Major depressive disorder, single episode, unspecified; Z79.01 Long term (current) use of anticoagulants; Z79.82 Long term (current) use of aspirin; Z87.01 Personal history of pneumonia (recurrent); Z91.81 History of falling; Z99.3 Dependence on wheelchair; Z87.891 Personal history of nicotine dependence
CPT/HCPCS: 36600; 47531; 47536; 71045; 71046; 71250; 74176; 76000; 76604; 76942; 78582; 80048; 80048 91; 80053; 81003; 82803; 82945; 82948; 83615 91; 83690; 83880; 84157; 84484; 85025; 85027; 85379; 85610; 85730; 86850; 86900; 86901; 87040; 87070; 87075; 87205; 87641; 88108; 88305; 89051; 93970; 94010; 94640; 94640 76; 94667; 94668; 94760; 94799; 99202; 99281; 99285; A6214; A9539; A9540; C1729; C1766; C1769; C9113; G0378; J0696; J1644; J1650; J1815; J1940; J1956; J2405; J2930; J7040; J7512

== ENCOUNTER → 2017-10-30 | Outpatient (CLI) | payer OTHER ==
[~2017-10-30] MED LIST changes: +AMITRIPTYLINE H25 MG PO; +FLAGYL500 MG PO; +FUROSEMIDE20 MG PO; +GABAPENTIN400 MG PO; +LOVENOX100 MG/1 M SC; +MILK OF MAGN PO; +NIACIN ER500 MG PO; +SENNA PLUS TAB1 EACH PO
== END | disposition home or self-care (01) ==
LOC: RAD 10-29 08:30
DX: J90 Pleural effusion, not elsewhere classified (principal); R91.1 Solitary pulmonary nodule; J84.10 Pulmonary fibrosis, unspecified; I25.10 Atherosclerotic heart disease of native coronary artery without angina pectoris; M47.9 Spondylosis, unspecified; R91.8 Other nonspecific abnormal finding of lung field
CPT/HCPCS: 71250

== ENCOUNTER 2017-11-18 22:14 | Inpatient (IN) | payer OTHER ==
[~2017-11-18] VITALS: Ht 162.6 cm; Wt 115.8 kg
[2017-11-18 22:53] LABS: HEMATOCRIT 33.8 % (36.0-46.0); HEMOGLOBIN 10.9 G/DL (11.9-15.5); MCH 31.1 PG (29.0-34.0); MCHC 32.2 G/DL (30.0-36.0); MCV 96.6 FL (83-99); NRBC (%) 0.2 /100 WBC (0-0); PLATELET COUNT 171 K/uL (156-360); RBC DIS.WIDTH-SD 56.2 % (39-53); WHITE BLOOD COUNT 8.3 K/uL (4.1-10.2)
[2017-11-18 23:01] LABS: ALBUMIN 3.4 g/dL (3.2-4.8)
[2017-11-18 23:02] LABS: CHLORIDE 93 mEq/L (99-109); POTASSIUM 4.1 mEq/L (3.7-5.4); SODIUM 133 mEq/L (136-147)
[2017-11-18 23:04] LABS: GLUCOSE 140 mg/dL (70-99); TOTAL PROTEIN 6.2 g/dL (6.4-8.3)
[2017-11-18 23:06] LABS: TOTAL BILIRUBIN 0.5 mg/dL (0.0-1.0)
[2017-11-18 23:07] LABS: ALKALINE PHOSPHATASE 69 IU/L (3-129)
[2017-11-18 23:08] LABS: CREATININE 1.1 mg/dL (0.6-1.3); GFR ESTIMATE (CALCULATED) 51 mL/min/
[2017-11-18 23:09] LABS: AST (GOT) 24 IU/L (2-34); UREA NITROGEN (BUN) 26 mg/dL (9-23)
[2017-11-18 23:10] LABS: ALT (GPT) 19 IU/L (3-49)
[2017-11-18 23:11] LABS: LIPASE 16 U/L (1.0-51.0)
[2017-11-18 23:14] LABS: TROP-I INTERPRETATION NEGATIVE; TROPONIN-I < 0.01 ng/mL (0.0-0.30)
[2017-11-19 04:11] LABS: BASE EXCESS 7.1 mEq/L (-3 to +3); BICARBONATE 34.2 mEq/L (22-26); CARBOXY HGB 2.2 % (0-5); COMMENTS - BLOOD GASES C+; DEVICE NC; METHEMOGLOBIN 1.3 % (0-1.5); O2 FLOW 4 L/MIN; PCO2 62 mm Hg (35-45); PO2 74 mm Hg (80-100); SITE LR; TOTAL RESP RATE 17 resp/min; pH 7.35 (7.35-7.45)
[2017-11-19 04:45] VITALS: BP 95/54
[2017-11-19 07:41] VITALS: BP 95/54
[2017-11-19] MEDS ORDERED: JANUVIA25 M1 PO (10:28)
[2017-11-19] MEDS ORDERED: FUROSEMIDE20 MG PO (10:32)
[2017-11-19] MEDS ORDERED: SENNA S TABLET1 EACH PO (10:36)
[2017-11-19] MEDS ORDERED: SALINE NASAL SP45 ML BOTH NARES (10:39)
[2017-11-19] MEDS ORDERED: CALCIUM 600 +1 EAC6 PO (10:44)
[2017-11-19] MEDS ORDERED: DUONEB 2.5-0.5 M3 ML PEP (10:49)
[2017-11-19] MEDS ORDERED: XOPENEX0.63 MG/3 IH (10:54)
[2017-11-19] MEDS ORDERED: BISAC-EVAC10 MG PR (10:55)
[2017-11-19] MEDS ORDERED: FLEET ENEMA-AD118 ML PR (10:57)
[2017-11-19] MEDS ORDERED: ACETAMINOPHEN325 M1 PO (10:58)
[2017-11-19] MEDS ORDERED: CEPACOL SORE T1 EAC9 MM (10:58)
[2017-11-19] MEDS ORDERED: DUONEB 2.5-0.5 M3 ML AEROSOL (10:59)
[2017-11-19] MEDS ORDERED: ZOFRAN ODT4 MG PO (11:01)
[2017-11-19] MEDS ORDERED: WARFARIN SODIU2.5 MG PO (11:04)
[2017-11-19 11:25] VITALS: BP 105/71
[2017-11-19 13:58] LABS: APPEARANCE CLOUDY ((CLEAR)); BILIRUBIN NEGATIVE; BLOOD NEGATIVE; COLOR YELLOW ((YELLOW)); GLUCOSE (STRIP) NEGATIVE; KETONES NEGATIVE; LEUKOCYTES LARGE; NITRITE NEGATIVE; PROTEIN (STRIP) NEGATIVE; SPECIFIC GRAVITY 1.016 (1.000-1.030); UROBILINOGEN 0.2 MG/DL (0.2-1.0)
[2017-11-19 14:22] LABS: RED BLOOD CELLS NONE SEEN /HPF (0-5); WHITE BLOOD CELLS 40-50 /HPF (0-5)
[2017-11-19 14:23] LABS: BACTERIA RARE /HPF; EPITHELIAL CELLS 1+ /HPF; MUCUS 1+ /LPF; UCUL ADDED? YES
[2017-11-19 16:32] VITALS: BP 122/71
[2017-11-19 19:31] VITALS: BP 118/72
[2017-11-19 23:30] VITALS: BP 122/60
[2017-11-20 06:09] VITALS: BP 140/68
[2017-11-20 06:19] LABS: BASOPHIL (%) 0.1 % (0-1); EOSINOPHIL (%) 0 % (0-5); HEMATOCRIT 34.4 % (36.0-46.0); IMMATURE GRANULOCYTE (%) 1.4 % (0.0-0.7); LYMPHOCYTE (%) 4.6 % (15-42); LYMPHOCYTE COUNT 0.5 K/uL (1.0-2.8); MCH 30.8 PG (29.0-34.0); MCV 96.4 FL (83-99); MONOCYTE (%) 2.1 % (3-12); MONOCYTE COUNT 0.2 K/uL (0-0.8); NEUTROPHIL (%) 91.8 % (45-76); NEUTROPHIL COUNT 9.2 K/uL (1.8-6.4); PLATELET COUNT 163 K/uL (156-360); RBC DIS.WIDTH-CV 15.9 % (11.8-14.6); RBC DIS.WIDTH-SD 56.3 % (39-53); RED BLOOD COUNT 3.57 M/uL (3.80-5.20)
[2017-11-20 06:36] LABS: CHLORIDE 96 MEQ/L (99-109); CREATININE 1.1 MG/DL (0.6-1.3); GFR ESTIMATE (CALCULATED) 51 mL/min/; GLUCOSE 176 mg/dL (70-99); POTASSIUM 4.1 MEQ/L (3.7-5.4); SODIUM 133 MEQ/L (136-147); UREA NITROGEN (BUN) 25 mg/dL (9-23)
[2017-11-20 07:32] VITALS: BP 133/74
[2017-11-20 11:04] VITALS: BP 124/60
[2017-11-20 15:41] VITALS: BP 132/70
[2017-11-20 20:00] VITALS: BP 129/78
[2017-11-21 00:21] VITALS: BP 136/65
[2017-11-21 08:00] VITALS: BP 162/82
[2017-11-21 10:35] LABS: HEMATOCRIT 35.3 % (36.0-46.0); MCH 30.4 PG (29.0-34.0); MCHC 31.2 G/DL (30.0-36.0); MCV 97.5 FL (83-99); PLATELET COUNT 196 K/uL (156-360); RBC DIS.WIDTH-CV 16.3 % (11.8-14.6); RBC DIS.WIDTH-SD 58.2 % (39-53); RED BLOOD COUNT 3.62 M/uL (3.80-5.20); WHITE BLOOD COUNT 10.6 K/uL (4.1-10.2)
[2017-11-21 10:57] LABS: CHLORIDE 95 MEQ/L (99-109); CREATININE 1.1 MG/DL (0.6-1.3); GFR ESTIMATE (CALCULATED) 51 mL/min/; GLUCOSE 191 mg/dL (70-99); POTASSIUM 3.6 MEQ/L (3.7-5.4); SODIUM 137 MEQ/L (136-147); UREA NITROGEN (BUN) 28 mg/dL (9-23)
[2017-11-21 16:00] VITALS: BP 121/58
[2017-11-21 20:00] VITALS: BP 141/72
[2017-11-22] VITALS: BP 144/81
[2017-11-22 04:00] VITALS: BP 140/76
[2017-11-22 07:37] VITALS: BP 144/94
[2017-11-22 15:38] VITALS: BP 139/72
[2017-11-22 20:00] VITALS: BP 143/70
[2017-11-23] VITALS: BP 142/79
[2017-11-23 04:00] VITALS: BP 142/69
[2017-11-23 05:22] LABS: HEMATOCRIT 34.7 % (36.0-46.0); MCHC 31.7 G/DL (30.0-36.0); MCV 97.7 FL (83-99); PLATELET COUNT 162 K/uL (156-360); RBC DIS.WIDTH-SD 57.6 % (39-53); RED BLOOD COUNT 3.55 M/uL (3.80-5.20)
[2017-11-23 06:19] LABS: CHLORIDE 96 MEQ/L (99-109); CREATININE 1.2 MG/DL (0.6-1.3); GFR ESTIMATE (CALCULATED) 46 mL/min/; GLUCOSE 230 mg/dL (70-99); POTASSIUM 3.6 MEQ/L (3.7-5.4); SODIUM 137 MEQ/L (136-147); UREA NITROGEN (BUN) 29 mg/dL (9-23)
[2017-11-23 07:59] VITALS: BP 158/95
[2017-11-23 11:39] VITALS: BP 152/76
[2017-11-23 16:49] VITALS: BP 155/80
[2017-11-23 20:00] VITALS: BP 158/73
[2017-11-24 00:38] VITALS: BP 158/82
[2017-11-24 04:21] VITALS: BP 147/78
[2017-11-24 08:18] VITALS: BP 134/87
[2017-11-24 18:18] VITALS: BP 135/75
[2017-11-25 00:17] VITALS: BP 132/63
[2017-11-25 06:55] LABS: CHLORIDE 97 MEQ/L (99-109); CREATININE 1.3 MG/DL (0.6-1.3); GFR ESTIMATE (CALCULATED) 42 mL/min/; GLUCOSE 163 mg/dL (70-99); POTASSIUM 3.9 MEQ/L (3.7-5.4); SODIUM 137 MEQ/L (136-147); UREA NITROGEN (BUN) 32 mg/dL (9-23)
[2017-11-25 07:30] VITALS: BP 149/76
[2017-11-26] VITALS: BP 147/83
[2017-11-26 08:16] VITALS: BP 152/74
[2017-11-26 16:10] VITALS: BP 132/58
[2017-11-27 01:24] VITALS: BP 130/58
[2017-11-27 07:36] VITALS: BP 141/65
[2017-11-27] MEDS ORDERED: FUROSEMIDE40 MG PO (08:21)
[2017-11-27] MEDS ORDERED: PREDNISONE10 MG PO (08:26)
== END 2017-11-27 12:15 | DRG 190 ==
LOC: EME → EDBD 22:14 → EDOF 11-19 03:46 → 5SOUTH 11-19 03:46 → ENRESERV 11-19 03:53 → 5SOUTH 11-19 04:40
PROVIDERS: Emergency Medicine; Hospitalist
PROC: 0BCB8ZZ Extirpation of Matter from Left Lower Lobe Bronchus, Via Natural or Artificial Opening Endoscopic (ICD-10-PCS; principal; 2017-11-25)
PROC: 0BC88ZZ Extirpation of Matter from Left Upper Lobe Bronchus, Via Natural or Artificial Opening Endoscopic (ICD-10-PCS; principal; 2017-11-25)
DX: J44.0 Chronic obstructive pulmonary disease with (acute) lower respiratory infection (principal); J20.9 Acute bronchitis, unspecified; T17.890A Other foreign object in other parts of respiratory tract causing asphyxiation, initial encounter; J44.1 Chronic obstructive pulmonary disease with (acute) exacerbation; J96.01 Acute respiratory failure with hypoxia; E87.1 Hypo-osmolality and hyponatremia; M62.81 Muscle weakness (generalized); M79.81 Nontraumatic hematoma of soft tissue; R79.1 Abnormal coagulation profile; T45.515A Adverse effect of anticoagulants, initial encounter; I13.0 Hypertensive heart and chronic kidney disease with heart failure and stage 1 through stage 4 chronic kidney disease, or unspecified chronic kidney disease; I50.33 Acute on chronic diastolic (congestive) heart failure; E11.22 Type 2 diabetes mellitus with diabetic chronic kidney disease; N18.3 Chronic kidney disease, stage 3 (moderate); E78.5 Hyperlipidemia, unspecified; E11.42 Type 2 diabetes mellitus with diabetic polyneuropathy; E03.9 Hypothyroidism, unspecified; M10.9 Gout, unspecified; F32.9 Major depressive disorder, single episode, unspecified; E66.01 Morbid (severe) obesity due to excess calories; K59.09 Other constipation; I25.10 Atherosclerotic heart disease of native coronary artery without angina pectoris; M17.0 Bilateral primary osteoarthritis of knee; G89.4 Chronic pain syndrome; K80.10 Calculus of gallbladder with chronic cholecystitis without obstruction; I48.2 Chronic atrial fibrillation; Z79.01 Long term (current) use of anticoagulants; Z79.82 Long term (current) use of aspirin; Z91.040 Latex allergy status; Z87.891 Personal history of nicotine dependence; Z68.41 Body mass index [BMI] 40.0-44.9, adult
CPT/HCPCS: 36600; 71045; 71046; 71275; 76604; 80048; 80053; 81003; 82803; 82945; 82948; 83605; 83615 91; 83690; 83880; 84157; 84484; 85025; 85027; 86850; 86900; 86901; 87040; 87070; 87086; 87116; 87205; 87206; 87449; 89051; 92610 GN; 93005; 94010; 94640; 94640 76; 94667; 94668; 94760; 94799; 97530 GO; 97530 GP; 99202; 99281; 99285; C1753; J0456; J1650; J1815; J1940; J1956; J2250; J2543; J2930; J3010; J3370; J7050; J7512; J7608

== ENCOUNTER → 2017-12-24 | Outpatient (CLI) | payer OTHER ==
[~2017-12-24] MED LIST changes: +ACETAMINOPHEN325 M1 PO; +BISAC-EVAC10 MG PR; +CALCIUM 600 +1 EAC6 PO; +CEPACOL SORE T1 EAC9 MM; +COUMADIN4 MG PO; +DUONEB 2.5-0.5 M3 ML AEROSOL; +DUONEB 2.5-0.5 M3 ML PEP; +FLEET ENEMA-AD118 ML PR; +SALINE NASAL SP45 ML BOTH NARES; +SENNA S TABLET1 EACH PO; +WARFARIN SODIU2.5 MG PO; +XOPENEX0.63 MG/3 IH; +ZOFRAN ODT4 MG PO
[2017-12-24 14:36] LABS: INTER. NORMALIZED RATIO 3.5
[2017-12-24 14:39] LABS: PTT 53.3 SEC (25-37)
== END | disposition home or self-care (01) ==
LOC: OPR 13:24 → EDSTATUS 14:00
PROVIDERS: Physician Assistant
PROC: BF131ZZ Fluoroscopy of Gallbladder and Bile Ducts using Low Osmolar Contrast (ICD-10-PCS; principal; 2017-12-24)
DX: K91.89 Other postprocedural complications and disorders of digestive system (principal); K81.1 Chronic cholecystitis; I48.91 Unspecified atrial fibrillation; J44.9 Chronic obstructive pulmonary disease, unspecified; I12.9 Hypertensive chronic kidney disease with stage 1 through stage 4 chronic kidney disease, or unspecified chronic kidney disease; E11.22 Type 2 diabetes mellitus with diabetic chronic kidney disease; N18.3 Chronic kidney disease, stage 3 (moderate); Z87.891 Personal history of nicotine dependence; Z79.01 Long term (current) use of anticoagulants; Z91.040 Latex allergy status
CPT/HCPCS: 76000; 82948; 85610; 85730

== ENCOUNTER → 2017-12-26 | Outpatient (CLI) | payer OTHER | END | disposition home or self-care (01) | LOC: OPR 12:46 → EDSTATUS 13:00 → OPR 13:00 | PROC: 0F2BX0Z Change Drainage Device in Hepatobiliary Duct, External Approach (ICD-10-PCS; principal; 2017-12-26) | DX: T85.638A Leakage of other specified internal prosthetic devices, implants and grafts, initial encounter (principal); K80.20 Calculus of gallbladder without cholecystitis without obstruction | CPT/HCPCS: 47536; C1769 ==

== ENCOUNTER → 2018-01-06 | Outpatient (CLI) | payer MEDICARE, OTHER ==
[~2018-01-06] MED LIST changes: +BACTRIM,SEPT1 TABLET PO; +COUMADIN3 MG PO; -COUMADIN4 MG PO; +NOVOLOG PE100 UNITS/ SC; +TYLENOL ARTHRI650 MG PO; +VENTOLIN HFA18 GM IH
== END ==
LOC: CDC 11:31
DX: Z01.810 Encounter for preprocedural cardiovascular examination (principal); I10 Essential (primary) hypertension; I25.10 Atherosclerotic heart disease of native coronary artery without angina pectoris; I48.91 Unspecified atrial fibrillation; R94.31 Abnormal electrocardiogram [ECG] [EKG]
CPT/HCPCS: 93000

== ENCOUNTER 2018-01-08 11:54 | Inpatient (IN) | payer OTHER ==
[~2018-01-08] VITALS: Ht 162.6 cm; Wt 116.6 kg
[2018-01-08 13:35] VITALS: BP 128/58
[2018-01-08 13:58] LABS: INTER. NORMALIZED RATIO 2.2
[2018-01-08 14:01] LABS: PTT 35.8 SEC (25-37)
[2018-01-08 22:30] VITALS: BP 124/67
[2018-01-09 03:01] VITALS: BP 116/63
[2018-01-09 05:23] LABS: HEMATOCRIT 30.5 % (36.0-46.0); MCH 28.8 PG (29.0-34.0); MCHC 30.8 G/DL (30.0-36.0); MCV 93.6 FL (83-99); PLATELET COUNT 205 K/uL (156-360); RBC DIS.WIDTH-CV 15.2 % (11.8-14.6); RED BLOOD COUNT 3.26 M/uL (3.80-5.20)
[2018-01-09 05:30] LABS: HEMOGLOBIN 9.4 G/DL (11.9-15.5)
[2018-01-09 06:10] LABS: ALBUMIN 3.5 G/DL (3.2-4.8); ALKALINE PHOSPHATASE 44 IU/L (3-129); CHLORIDE 101 MEQ/L (99-109); CREATININE 1.5 MG/DL (0.6-1.3); GFR ESTIMATE (CALCULATED) 36 mL/min/; GLUCOSE 192 mg/dL (70-99); SODIUM 139 MEQ/L (136-147); TOTAL PROTEIN 6.3 G/DL (6.4-8.3); UREA NITROGEN (BUN) 30 mg/dL (9-23)
[2018-01-09 06:26] LABS: ALT (GPT) 36 IU/L (3-49); AST (GOT) 106 IU/L (2-34); POTASSIUM 4.3 MEQ/L (3.7-5.4); TOTAL BILIRUBIN 0.3 MG/DL (0.0-1.0)
[2018-01-09 07:59] VITALS: BP 118/58
[2018-01-09 09:24] LABS: HEMOGLOBIN A1c (GLYCOHEMOGLOB) 6.2 % (Below 5.7)
[2018-01-09 12:00] VITALS: BP 110/56
[2018-01-09 16:00] VITALS: BP 112/56
[2018-01-09 18:17] VITALS: BP 112/54
[2018-01-09 23:23] VITALS: BP 124/56
[2018-01-10 06:15] LABS: BASOPHIL (%) 0.9 % (0-1); BASOPHIL COUNT 0.1 K/uL (0-0.1); EOSINOPHIL (%) 1.4 % (0-5); EOSINOPHIL COUNT 0.1 K/uL (0-0.3); HEMATOCRIT 29.7 % (36.0-46.0); HEMOGLOBIN 9.1 G/DL (11.9-15.5); IMMATURE GRANULOCYTE (%) 0.4 % (0.0-0.7); LYMPHOCYTE (%) 12.2 % (15-42); MCHC 30.6 G/DL (30.0-36.0); MCV 94.6 FL (83-99); MONOCYTE (%) 5.9 % (3-12); MONOCYTE COUNT 0.5 K/uL (0-0.8); NEUTROPHIL (%) 79.2 % (45-76); NEUTROPHIL COUNT 6.1 K/uL (1.8-6.4); PLATELET COUNT 178 K/uL (156-360); RBC DIS.WIDTH-CV 15.4 % (11.8-14.6); RBC DIS.WIDTH-SD 53.2 % (39-53); RED BLOOD COUNT 3.14 M/uL (3.80-5.20); WHITE BLOOD COUNT 7.8 K/uL (4.1-10.2)
[2018-01-10 06:18] LABS: INTER. NORMALIZED RATIO 1.3
[2018-01-10 06:37] LABS: ALBUMIN 3.1 G/DL (3.2-4.8); ALKALINE PHOSPHATASE 40 IU/L (3-129); ALT (GPT) 24 IU/L (3-49); CHLORIDE 105 MEQ/L (99-109); CREATININE 1.4 MG/DL (0.6-1.3); GFR ESTIMATE (CALCULATED) 39 mL/min/; GLUCOSE 121 mg/dL (70-99); POTASSIUM 4.4 MEQ/L (3.7-5.4); SODIUM 141 MEQ/L (136-147); TOTAL BILIRUBIN 0.3 MG/DL (0.0-1.0); TOTAL PROTEIN 5.4 G/DL (6.4-8.3); UREA NITROGEN (BUN) 23 mg/dL (9-23)
[2018-01-10 06:40] LABS: AST (GOT) 41 IU/L (2-34)
[2018-01-10 07:05] VITALS: BP 111/54
[2018-01-10 13:30] VITALS: BP 140/70
[2018-01-10 16:00] VITALS: BP 133/59
[2018-01-10 22:43] VITALS: BP 113/59
[2018-01-11 06:14] LABS: HEMATOCRIT 31.4 % (36.0-46.0); HEMOGLOBIN 9.5 G/DL (11.9-15.5); MCH 28.7 PG (29.0-34.0); MCHC 30.3 G/DL (30.0-36.0); MCV 94.9 FL (83-99); PLATELET COUNT 191 K/uL (156-360); RBC DIS.WIDTH-CV 15.4 % (11.8-14.6); RBC DIS.WIDTH-SD 54.3 % (39-53); RED BLOOD COUNT 3.31 M/uL (3.80-5.20); WHITE BLOOD COUNT 6.3 K/uL (4.1-10.2)
[2018-01-11 06:40] LABS: ALKALINE PHOSPHATASE 50 IU/L (3-129); ALT (GPT) 18 IU/L (3-49); AST (GOT) 23 IU/L (2-34); CHLORIDE 104 MEQ/L (99-109); CREATININE 1.3 MG/DL (0.6-1.3); GFR ESTIMATE (CALCULATED) 42 mL/min/; GLUCOSE 114 mg/dL (70-99); POTASSIUM 4.3 MEQ/L (3.7-5.4); SODIUM 137 MEQ/L (136-147); TOTAL PROTEIN 5.5 G/DL (6.4-8.3); UREA NITROGEN (BUN) 20 mg/dL (9-23)
[2018-01-11 06:42] LABS: TOTAL BILIRUBIN 0.4 MG/DL (0.0-1.0)
[2018-01-11 07:10] VITALS: BP 112/56
[2018-01-11 15:55] VITALS: BP 120/57
[2018-01-11 22:39] VITALS: BP 104/52
[2018-01-12] VITALS: BP 110/50
[2018-01-12 07:56] VITALS: BP 118/58
[2018-01-12 16:59] VITALS: BP 121/60
[2018-01-12 22:59] VITALS: BP 115/55
[2018-01-13 06:01] LABS: INTER. NORMALIZED RATIO 1.3
[2018-01-13 07:30] VITALS: BP 120/59
[2018-01-13] MEDS ORDERED: ULTRAM50 MG PO (08:49)
== END 2018-01-13 17:47 | disposition home health service (06) | DRG 415 ==
LOC: SDC → ENRESERV 21:13 → 4EAST 22:04 → ENRESERV 01-09 16:12 → 5EAST 01-09 17:56
PROVIDERS: Physician Assistant; Surgery
DX: K80.12 Calculus of gallbladder with acute and chronic cholecystitis without obstruction (principal); B95.62 Methicillin resistant Staphylococcus aureus infection as the cause of diseases classified elsewhere; K66.0 Peritoneal adhesions (postprocedural) (postinfection); Z53.31 Laparoscopic surgical procedure converted to open procedure; J90 Pleural effusion, not elsewhere classified; J98.11 Atelectasis; R09.02 Hypoxemia; E66.01 Morbid (severe) obesity due to excess calories; Z68.41 Body mass index [BMI] 40.0-44.9, adult; M62.81 Muscle weakness (generalized); L72.8 Other follicular cysts of the skin and subcutaneous tissue; D68.9 Coagulation defect, unspecified; D64.9 Anemia, unspecified; J44.9 Chronic obstructive pulmonary disease, unspecified; E11.22 Type 2 diabetes mellitus with diabetic chronic kidney disease; I48.2 Chronic atrial fibrillation; I12.9 Hypertensive chronic kidney disease with stage 1 through stage 4 chronic kidney disease, or unspecified chronic kidney disease; N18.3 Chronic kidney disease, stage 3 (moderate); R26.9 Unspecified abnormalities of gait and mobility; E03.9 Hypothyroidism, unspecified; M10.9 Gout, unspecified; Z87.891 Personal history of nicotine dependence
CPT/HCPCS: 36415; 71046; 71048; 74018; 76942; 80053; 80202; 82948; 83036; 85025; 85027; 85610; 85610 GA; 85730; 86850; 86900; 86901; 88304; 93000; 94002; 94640; 94760; 94799; J0131; J1170; J1644; J1815; J2405; J2710; J3010; J3370; J3430; J7050; J7120; J7643; P9017; S0074